=== PATIENT | female | born 1965 | race Caucasian/White ===

== ENCOUNTER 2016-08-19 05:47 | Day surgery (SDC) | payer BC, OTHER ==
[2016-08-19] MEDS ORDERED: LIDOCAINE 1% 5 ML SDV ID PRN (06:23)
[2016-08-19] MEDS ORDERED: LIDOCAINE 1% 2 ML INJ ONE (06:25)
[2016-08-19] MEDS ORDERED: BUPIVACAINE 0.25% 30 ML SDV ONE (06:42)
[2016-08-19] MEDS ORDERED: NA BICARBONATE 50 MEQ/50 ML VIAL ONE (06:42)
[2016-08-19] MEDS ORDERED: LIDOCAINE 1% 30 ML SDV ONE ×2 (06:42→06:46)
[2016-08-19] MEDS ORDERED: ceFAZolin 2 GM/DEXTROSE 100 ML IV ONE (07:00)
[2016-08-19] MEDS ORDERED: MIDAZOLAM 2 MG/2 ML VIAL ONE (07:05)
[2016-08-19] MEDS ORDERED: SCOPOLAMINE HYDROBROMIDE 1.5 MG PATCH TD ONE (07:08)
[2016-08-19] MEDS ORDERED: fentaNYL 250 MCG/5 ML INJ ONE (07:09)
[2016-08-19] MEDS ORDERED: PROPOFOL/EMULSION 500 MG/50 ML BOTTLE IV ONE ×2 (07:10→08:10)
[2016-08-19] MEDS ORDERED: METOCLOPRAMIDE 10 MG/2 ML VIAL ONE (08:08)
[2016-08-19] MEDS ORDERED: ONDANSETRON 4 MG/2 ML VIAL ONE (08:08)
[2016-08-19] MEDS ORDERED: RANITIDINE 50 MG/2 ML VIAL ONE (08:08)
[2016-08-19] MEDS ORDERED: DEXAMETHASONE 4 MG/ML VIAL ONE ×2 (08:08→08:09)
[2016-08-19] MEDS ORDERED: ROCURONIUM 50 MG/5 ML VIAL ONE (08:08)
[2016-08-19] MEDS ORDERED: SUGAMMADEX SODIUM 200 MG/2 ML VIAL IVP ONE (09:15)
[2016-08-19] MEDS ORDERED: PROPOFOL 200 MG/20 ML VIAL ONE (09:26)
[2016-08-19] MEDS ORDERED: fentaNYL 100 MCG/2 ML INJ ONE ×2 (10:14→12:04)
[2016-08-19] MEDS ORDERED: HYDROCODONE/APAP 5/325 TAB ONE (11:08)
--- NOTE | 2016-08-19 12:48 | GOP ---
[f rep st] OPERATIVE REPORT DATE OF OPERATION: 08/19/2016 SURGEON: Luz Mendoza Jr., MD EPOXY SPECIALIST: Jenaro Villafuerte MD. ANESTHESIA: General inhalation anesthesia. ANESTHESIOLOGIST: Hillary Almanza MD. PREOPERATIVE DIAGNOSIS: 1. Hanging abdominal pannus with intertriginous rash. 2. 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 3. Neck lipodystrophy. 4. 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 POSTOPERATIVE DIAGNOSIS: 1. Hanging abdominal pannus with intertriginous rash. 2. 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 3. Neck lipodystrophy. 4. 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 PROCEDURE PERFORMED: 1. Panniculectomy. 2. Extended abdominoplasty. 3. UAL/CARLINE contouring of flanks. 4. CARLINE contouring of neck. FINDINGS: ESTIMATED BLOOD LOSS: 50 cc. INDICATIONS: The patient is a 50-year-old white female who came in with significant discomfort and irritation from an overlying abdominal wall pannus following a . She was noted to have sig nificant intertriginous skin breakdown, pain and discomfort and trouble with clothing. She was deem ed an excellent candidate for a panniculectomy. She also elected to pursue additional cosmetic conc erns in the form of completion abdominoplasty and liposuction contouring of her trunk and neck. She was deemed a good candidate to have these procedures performed in conjunction. She was taken to [facility] operating room for that purpose. DESCRIPTION OF PROCEDURE: After the risks and benefits of the procedure were explained to the patie nt, specifically highlighting bleeding, infection, skin or incisional breakdown, wound healing diffi culties, contour irregularity, visible or hypertrophic scarring, numbness, weakness, and need for ad ditional procedures, formal operative consent was obtained. She was taken to the operating room. A fter adequate inhalational general anesthesia was provided by Dr. Hillary Almanza, her premarked cavazos niculectomy and abdominoplasty incisions were injected with 1% lidocaine containing adrenaline. She was prepped and draped in the normal sterile fashion. The procedure began with the panniculectomy. Initially tumescent solution was infiltrated into the flanks. This was done using a super-wet misa hnique. The fat was emulsified using a 3-ring Vaser ultrasound-assisted lipoplasty probe until the desired tissue resistance was lost. The fat was then removed in this area to aid in skin resection using 4.6 and 3.7 mm Vaser suction lipoplasty cannula. A stitch was then placed in the umbilical st alk, and a periumbilical incision was made. Meticulous Metzenbaum scissor dissection was used to di ssect out the umbilical stalk. The inferior panniculectomy incision was then made using a #10 blade . Electrocautery was used to dissect down through Lori fascia to the anterior abdominal wall. She was noted to have very hypertrophic scarring from her previous section. The mons pubis wa s defatted and elevated. The pannus was completely undermined and excised. The area was irrigated with normal saline. Meticulous hemostasis was assured, and attention was turned to the abdominoplas ty. The abdominoplasty flap was then elevated off the anterior abdominal wall fascia leaving subsca rpal fat down over the external oblique musculature. To minimize seroma formation, a modest plicati on was performed in the midline using buried [id number] 0 Nurolon sutures and oversewn with a V -Loc 180 suture. She was placed in a seated position on the operating room table. Additional skin and fat were resected as part of the cosmetic procedure. The area of the new umbilicus was marked a nd defatted from below. 30 cc of 0.25% plain Marcaine was instilled in the anterior abdominal wall fascia. Hemostasis was again assured and the pocket irrigated. Progressive tension suturing was pe rformed down to the anterior abdominal wall fascia using 2-0 Vicryl sutures. Lori fascia was then reapproximated using everting deep dermal 3-0 Monocryl suture. Significant dog ears were removed d ue to significant lipodystrophy with skin excess. This was somewhat limited on the patient's right side by the operating room table. A smooth contour was achieved on the left side. Two 15-round ANN drains were placed prior to closure. Skin edges were reapproximated using everting deep dermal 3-0 Monocryl suture and further everted using surgical radha. A smiley face incision was made at the level of the adin umbilicus, and the umbilical stalk was inset under minimal tension using everting d eep dermal 4-0 Vicryl suture and a running 6-0 nylon. She had bacitracin, Xeroform, and 4 x 4's [place] lied to all her incisions with a compressive abdominal binder. Attention was then turned to the [facility] k. After sterile prep and drape, a 2 mm incision was made, and tumescent was infiltrated into the s uperficial fat of the neck. It was contoured using a 3 mm Vaser suction lipoplasty cannula until th e desired contour had been achieved. A single suture was placed. She had a neck strap placed for c ompression. She was then extubated in the operating room and taken to the recovery room awake and i n stable condition. DRAINS: 2 ANN drains. Tumescent infiltrate 1000 cc, lipo aspirate 1200 cc. COMPLICATIONS: No complications. /[id number]/MODL
== END 2016-08-19 12:40 | disposition home or self-care (01) ==
LOC: FSGY 05:47
PROVIDERS: ATTEND Specialist
PROC: 0J073ZZ Alteration of Back Subcutaneous Tissue and Fascia, Percutaneous Approach (ICD-10-PCS; principal; 2016-08-19 07:15)
PROC: 0J043ZZ Alteration of Right Neck Subcutaneous Tissue and Fascia, Percutaneous Approach (ICD-10-PCS; principal; 2016-08-19 07:15)
PROC: 0J080ZZ Alteration of Abdomen Subcutaneous Tissue and Fascia, Open Approach (ICD-10-PCS; principal; 2016-08-19 07:15)
DX: E65 Localized adiposity (principal); L98.8 Other specified disorders of the skin and subcutaneous tissue; E88.1 Lipodystrophy, not elsewhere classified
CPT/HCPCS: J0171; J0690; J1100; J2250; J2405; J2704; J2765; J2780; J3010

== ENCOUNTER → 2018-04-24 | Outpatient (CLI) | payer BC ==
[~2018-04-24] MED LIST: IOPAMIDOL (ISOVUE-300) 100 ML BTL ONE
== END ==
LOC: FIMAGING 14:13
PROVIDERS: ATTEND Surgery
DX: R10.33 Periumbilical pain (principal)
CPT/HCPCS: Q9967